=== PATIENT | female | born 1940 | race Caucasian/White ===

== ENCOUNTER 2017-01-16 17:38 | Emergency (ER) | payer MEDICARE ==
[~2017-01-16] VITALS: Ht 149.9 cm; Wt 80.7 kg
[2017-01-16] MEDS: fentaNYL PF VIAL 100 MCG/2 ML VIAL IV PRN ×2 (18:52→20:26)
[2017-01-16 19:18] LABS: BASO % 0 % (0-3); EOS % 2 % (0-3); HEMATOCRIT 30.4 % (36.0-47.0); HEMOGLOBIN 10.1 g/dL (12.0-15.5); LYMPH # 1.2 x10^3/uL (1.0-4.8); LYMPH % 22 % (24-48); MEAN CORPUSCULAR HEMOGLOBIN 33 pg (25-35); MEAN CORPUSCULAR HGB CONC 33 g/dL (31-37); MEAN CORPUSCULAR VOLUME 98 fL (79-100); MONO % 16 % (0-9); NEUT % 61 % (31-73); PLATELET COUNT 209 x10^3/uL (140-400); RED BLOOD COUNT 3.09 x10^6/uL (3.50-5.40); RED CELL DISTRIBUTION WIDTH 15.1 % (11.5-14.5); WHITE BLOOD COUNT 5.6 x10^3/uL (4.0-11.0)
[2017-01-16 19:27] LABS: BILIRUBIN,URINE NEGATIVE (NEG); GLUCOSE,URINE NEGATIVE (NEG); NITRITE,URINE NEGATIVE (NEG); PROTEIN,URINE NEGATIVE (NEG-TRACE); UROBILINOGEN,URINE 0.2 mg/dL (0.2 mg/dL)
[2017-01-16 19:29] LABS: PROTHROMBIN TIME PATIENT 12.6 SEC (11.7-14.0)
[2017-01-16 19:33] LABS: ANION GAP 10 (6-14); BLOOD UREA NITROGEN 22 mg/dL (7-20); BUN/CREATININE RATIO 16 (6-20); CALCIUM 9.7 mg/dL (8.5-10.1); CARBON DIOXIDE 28 mmol/L (21-32); CHLORIDE 101 mmol/L (98-107); CREATININE 1.4 mg/dL (0.6-1.0); GFR 36.4; GLUCOSE 142 mg/dL (70-99); POTASSIUM 3.2 mmol/L (3.5-5.1); SODIUM 139 mmol/L (136-145)
[2017-01-16 19:39] LABS: ALBUMIN 3.7 g/dL (3.4-5.0); ALK PHOS 66 U/L (46-116); AST (SGOT) 15 U/L (15-37); TOTAL BILIRUBIN 0.4 mg/dL (0.2-1.0); TOTAL PROTEIN 7.3 g/dL (6.4-8.2)
[2017-01-16 19:40] LABS: ALT (SGPT) < 6 U/L (14-59)
[2017-01-16 19:46] LABS: BARBITURATES NEG (NEG); BENZODIAZEPINES NEG (NEG); CANNABINOIDS NEG (NEG); COCAINE NEG (NEG); METHADONE NEG (NEG); OPIATES POS (NEG); PHENCYCLIDINE NEG (NEG)
[2017-01-16 19:47] LABS: BACTERIA,URINE 0 /HPF (0-FEW); RBC,URINE 0 /HPF (0-2); SQUAMOUS EPITHELIAL CELL,UR OCC /LPF; WBC,URINE 0 /HPF (0-4)
[2017-01-16 20:30] VITALS: BP 186/86
--- NOTE | 2017-01-16 20:33 | RAD ---
CT head, cervical spine and maxillofacial without contrast 01/16/2017 CLINICAL INDICATION: Fall with left eye and facial swelling and bruising and neck pain. COMPARISON: None. TECHNIQUE: Multiple CT images of the head, maxillofacial and cervical spine were obtained without contrast according to standard protocol. *One or more of the following individualized dose reduction techniques were utilized for this examination: 1. Automated exposure control. 2. Adjustment of the mA and/or kV according to patient size. 3. Use of iterative reconstruction technique. FINDINGS: Head: No acute intracranial hemorrhage or extra-axial fluid collection. Orellana-white matter interfaces are maintained. No midline shift. The basal cisterns are patent. The ventricles and subarachnoid spaces are normal in size and configuration for age. Maxillofacial: There is a nondisplaced fracture of the anterior medial maxillary sinus wall series 6/image 32 which appears to extend to the left nasomaxillary buttress. There are depressed fractures of the left lamina papyracea. There are comminuted fractures of the left medial maxillary sinus wall. Comminuted and displaced fracture of the left orbital floor as seen on series 8/image 16 with inferior displacement of the inferior rectus muscle and orbital fat and adjacent stranding. There is a probable nondisplaced left posterior maxillary sinus wall fracture series 6/image 30. The pterygoid plates, zygomatic arches and mandibles are unremarkable. There is left premaxillary, perinasal and left periorbital soft tissue contusion. There are few foci of soft tissue gas in the left premaxillary soft tissues. There is large layering high density air-fluid level in the left maxillary sinus. There is mild opacification of the left nasal cavity and ethmoid air cells. Cervical spine: No evidence of acute cervical spine fracture or subluxation. There is normal cervical alignment. Atlantoaxial articulation is maintained. There is moderate multilevel cervical spondylosis with disc space narrowing, endplate sclerosis, marginal osteophytes, uncovertebral and facet hypertrophy. Spondylosis results in multilevel moderate to severe neural foraminal narrowing. Examination is not optimized for evaluation of spinal canal narrowing with at least moderate at C6-C7. The visualized lung apices are unremarkable. There are hypodense thyroid nodules, largest on the right measuring 1.5 cm. IMPRESSION: Head: 1. No acute intracranial hemorrhage. Maxillofacial: 1. Complex left maxillofacial fractures including far medial anterior maxillary sinus wall extending to the left nasomaxillary buttress, medial maxillary sinus wall, lamina papyracea, and comminuted left orbital floor fracture. 2. Inferior orbital blowout fracture with displacement of the left inferior rectus musculature and orbital fat with adjacent stranding concerning for orbital entrapment. 3. Probable nondisplaced posterior left maxillary sinus wall fracture. 4. Left maxillary hemosinus. 5. Extensive left periorbital and premaxillary soft tissue contusion with a few foci of soft tissue gas. Cervical spine: 1. No evidence of acute cervical spine fracture or traumatic malalignment. 2. Multilevel cervical spondylosis, as detailed above. These results were discussed with Dr. Mcghee of the emergency service by telephone at 8:25 PM 01/16/[address] Gabriel Thomas. Electronically signed by: Gabriel Thomas MD (01/16/2017 8:29 PM) [facility]
--- NOTE | 2017-01-17 01:37 | ED.ADGEN ---
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 Patient states that she was walking down several stairs, when the door blew open , and she lost her balance and fell, landing on her knees, and striking left side of her face against the pavement. This occurred about an hour prior to her arrival in the emergency department. They states that she takes a baby aspirin daily, Zantac any other anticoagulants. She denies any loss of consciousness, c- collars place upon arrival to the emergency department, patient is noted to have significant swelling of the left side of her face, surrounding the left eye , states that she has her usual blurry vision, denies any chest pain or shortness of breath, any preceding symptoms, any focal weakness, numbness or tingling, nausea vomiting. States her tetanus is up-to-date she last received a year ago. Is complaining of pain in the bilateral knees and left hip. Patient states that she has chronic pain in her left shoulder, where she is previously had a fracture and fixation, states that there is no change in this chronic pain. Review of Systems Review of Systems Constitutional: Denies fever or chills. [] Eyes: Denies change in visual acuity. [] HENT: Denies nasal congestion or sore throat. [] Respiratory: Denies cough or shortness of breath. [] Cardiovascular: Denies chest pain or edema. [] GI: Denies abdominal pain, nausea, vomiting, bloody stools or diarrhea. [] : Denies dysuria. [] Musculoskeletal: Denies back pain, left facial pain, swelling, pain in bilateral knees and left hip. Integument: Denies rash. [] Neurologic: Denies headache, focal weakness or sensory changes. [] Endocrine: Denies polyuria or polydipsia. [] Lymphatic: Denies swollen glands. [] Psychiatric: Denies depression or anxiety. [] Current Medications Current Medications Current Medications Medications (Trade) Dose Ordered Sig/John Start Time Stop Time Status Last Admin Dose Admin Fentanyl Citrate (Fentanyl 2ml Vial) 25 mcg PRN Q15MIN PRN 01/16/17 18:45 01/16/17 23:13 DC 01/16/17 20:26 25 MCG Allergies Allergies Allergies Coded Allergies Type Severity Reaction Last Updated Verified Penicillins Allergy Intermediate 01/16/17 Yes Sulfa (Sulfonamide Antibiotics) Allergy Intermediate 01/16/17 Yes Physical Exam Physical Exam Constitutional: Well developed, well nourished, patient with significant bruising and swelling to the left side of the face and periorbital region. HENT: Normocephalic, atraumatic, bilateral external ears normal hemotympanum, no septal hematoma, patient with significant periorbital swelling, with ecchymosis and hematoma noted, initial examination, patient having significant pain with any eye motion, however on reevaluation of receiving analgesic, patient does have motion appears intact in all directions and both left and right eye, difficult to ascertain any visual acuity, as patient states that she has very blurred vision at baseline, and does not have her glasses with her. Eyes: PERRLA, EOMI, conjunctiva normal, no discharge. [] Neck: Normal range of motion, no tenderness, supple, no stridor. C-collar placed in the ED. After CT imaging did not reveal any evidence of fracture, call was cleared without issue.[] Cardiovascular:Heart rate regular rhythm, no murmur, S1, S2, no rubs or gallops. [] Lungs & Thorax: Diminished breath sounds at bases bilaterally, no wheezing, rhonchi, rales. No chest wall crepitus or tenderness.[] Abdomen: Bowel sounds normal, soft, no rebound, rigidity, no guarding, no tenderness, no masses, no pulsatile masses. [] Skin: Warm, dry, no erythema, no rash. [] Back: Patient with tenderness to palpation throughout the lumbar region, both midline and paraspinal, patient status post previous surgery about surgical incision noted, no step-offs or deformities, no CVA tenderness. [] Extremities: Patient with ecchymosis and abrasions noted bilateral knees, complaining of pain with extension and flexion, although full range of motion is intact, with no cyanosis, no clubbing, ROM intact, no edema. [] Neurologic: Alert and oriented X 3, normal motor function, normal sensory function, no focal deficits noted. [] Psychologic: Affect normal, judgement normal, mood normal. [] Current Patient Data Vital Signs Vital Signs Date Time Temp Pulse Resp B/P (MAP) Pulse Ox O2 Delivery O2 Flow Rate FiO2 01/16/17 20:30 64 21 95 01/16/17 20:26 Room Air 01/16/17 17:40 97.9 173/107 (129) 97.9 Lab Values Laboratory Tests Test 01/16/17 18:50 01/16/17 19:16 White Blood Count 5.6 x10^3/uL (4.0-11.0) Red Blood Count 3.09 x10^6/uL (3.50-5.40) L Hemoglobin 10.1 g/dL (12.0-15.5) L Hematocrit 30.4 % (36.0-47.0) L Mean Corpuscular Volume 98 fL (79-100) Mean Corpuscular Hemoglobin 33 pg (25-35) Mean Corpuscular Hemoglobin Concent 33 g/dL (31-37) Red Cell Distribution Width 15.1 % (11.5-14.5) H Platelet Count 209 x10^3/uL (140-400) Neutrophils (%) (Auto) 61 % (31-73) Lymphocytes (%) (Auto) 22 % (24-48) L Monocytes (%) (Auto) 16 % (0-9) H Eosinophils (%) (Auto) 2 % (0-3) Basophils (%) (Auto) 0 % (0-3) Neutrophils # (Auto) 3.4 x10^3uL (1.8-7.7) Lymphocytes # (Auto) 1.2 x10^3/uL (1.0-4.8) Monocytes # (Auto) 0.9 x10^3/uL (0.0-1.1) Eosinophils # (Auto) 0.1 x10^3/uL (0.0-0.7) Basophils # (Auto) 0.0 x10^3/uL (0.0-0.2) Prothrombin Time 12.6 SEC (11.7-14.0) Prothrombin Time INR 1.0 (0.8-1.1) PTT 24 SEC (24-38) Sodium Level 139 mmol/L (136-145) Potassium Level 3.2 mmol/L (3.5-5.1) L Chloride Level 101 mmol/L (98-107) Carbon Dioxide Level 28 mmol/L (21-32) Anion Gap 10 (6-14) Blood Urea Nitrogen 22 mg/dL (7-20) H Creatinine 1.4 mg/dL (0.6-1.0) H Estimated GFR (Cockcroft-Gault) 36.4 BUN/Creatinine Ratio 16 (6-20) Glucose Level 142 mg/dL (70-99) H Calcium Level 9.7 mg/dL (8.5-10.1) Total Bilirubin 0.4 mg/dL (0.2-1.0) Aspartate Amino Transferase (AST) 15 U/L (15-37) Alanine Aminotransferase (ALT) < 6 U/L (14-59) L Alkaline Phosphatase 66 U/L (46-116) Total Protein 7.3 g/dL (6.4-8.2) Albumin 3.7 g/dL (3.4-5.0) Albumin/Globulin Ratio 1.0 (1.0-1.7) Urine Collection Type U cath Urine Color Yellow Urine Clarity Clear Urine pH 6.0 Urine Specific [place] 1.015 Urine Protein Negative mg/dL (NEG-TRACE) Urine Glucose (UA) Negative mg/dL (NEG) Urine Ketones (Stick) Negative mg/dL (NEG) Urine Blood Negative (NEG) Urine Nitrite Negative (NEG) Urine Bilirubin Negative (NEG) Urine Urobilinogen Dipstick 0.2 mg/dL (0.2 mg/dL) Urine Leukocyte Esterase Negative (NEG) Urine RBC 0 /HPF (0-2) Urine WBC 0 /HPF (0-4) Urine Squamous Epithelial Cells Occ /LPF Urine Transitional Epithelial Cells Occ /LPF Urine Bacteria 0 /HPF (0-FEW) Urine Hyaline Casts Few /HPF Urine Mucus Slight /LPF Urine Opiates Screen Pos (NEG) Urine Methadone Screen Neg (NEG) Urine Barbiturates Neg (NEG) Urine Phencyclidine Screen Neg (NEG) Urine Amphetamine/Methamphetamine Neg (NEG) Urine Benzodiazepines Screen Neg (NEG) Urine Cocaine Screen Neg (NEG) Urine Cannabinoids Screen Neg (NEG) Urine Ethyl Alcohol Neg (NEG) Laboratory Tests 01/16/17 18:50 Laboratory Tests 01/16/17 18:50 EKG EKG EC: Sinus rhythm, heart rate 67 bpm, left axis deviation, QTC of 436, OR of 92, QRS of 90, contour abnormalities in the anterior septal leads, no ST depressions or elevations, abnormal ECG, does not meet STEMI criteria. As interpreted by me. Radiology/Procedures Radiology/Procedures [][facility] [address] [place] [address] IMAGING REPORT Signed PATIENT: BRITT BUSTAMANTE ACCOUNT: [id number] : 1940 LOCATION: ER AGE: 76 SEX: F EXAM STATUS: REG ER ORD. PHYSICIAN: ALEXANDRA MCGHEE DO REASON: fall/injury PROCEDURE: CT CERVICAL SPINE WO CONTRAST CT head, cervical spine and maxillofacial without contrast 01/16/2017 CLINICAL INDICATION: Fall with left eye and facial swelling and bruising and neck pain. COMPARISON: None. TECHNIQUE: Multiple CT images of the head, maxillofacial and cervical spine were obtained without contrast according to standard protocol. *One or more of the following individualized dose reduction techniques were utilized for this examination: 1. Automated exposure control. 2. Adjustment of the mA and/or kV according to patient size. 3. Use of iterative reconstruction technique. FINDINGS: Head: No acute intracranial hemorrhage or extra-axial fluid collection. Orellana-white matter interfaces are maintained. No midline shift. The basal cisterns are patent. The ventricles and subarachnoid spaces are normal in size and configuration for age. Maxillofacial: There is a nondisplaced fracture of the anterior medial maxillary sinus wall series 6/image 32 which appears to extend to the left nasomaxillary buttress. There are depressed fractures of the left lamina papyracea. There are comminuted fractures of the left medial maxillary sinus wall. Comminuted and displaced fracture of the left orbital floor as seen on series 8/image 16 with inferior displacement of the inferior rectus muscle and orbital fat and adjacent stranding. There is a probable nondisplaced left posterior maxillary sinus wall fracture series 6/image 30. The pterygoid plates, zygomatic arches and mandibles are unremarkable. There is left premaxillary, perinasal and left periorbital soft tissue contusion. There are few foci of soft tissue gas in the left premaxillary soft tissues. There is large layering high density air-fluid level in the left maxillary sinus. There is mild opacification of the left nasal cavity and ethmoid air cells. Cervical spine: No evidence of acute cervical spine fracture or subluxation. There is normal cervical alignment. Atlantoaxial articulation is maintained. There is moderate multilevel cervical spondylosis with disc space narrowing, endplate sclerosis, marginal osteophytes, uncovertebral and facet hypertrophy. Spondylosis results in multilevel moderate to severe neural foraminal narrowing. Examination is not optimized for evaluation of spinal canal narrowing with at least moderate at C6-C7. The visualized lung apices are unremarkable. There are hypodense thyroid nodules, largest on the right measuring 1.5 cm. IMPRESSION: Head: 1. No acute intracranial hemorrhage. Maxillofacial: 1. Complex left maxillofacial fractures including far medial anterior maxillary sinus wall extending to the left nasomaxillary buttress, medial maxillary sinus wall, lamina papyracea, and comminuted left orbital floor fracture. 2. Inferior orbital blowout fracture with displacement of the left inferior rectus musculature and orbital fat with adjacent stranding concerning for orbital entrapment. 3. Probable nondisplaced posterior left maxillary sinus wall fracture. 4. Left maxillary hemosinus. 5. Extensive left periorbital and premaxillary soft tissue contusion with a few foci of soft tissue gas. Cervical spine: 1. No evidence of acute cervical spine fracture or traumatic malalignment. 2. Multilevel cervical spondylosis, as detailed above. These results were discussed with Dr. Mcghee of the emergency service by telephone at 8:25 PM 01/16/[address] Francy Thomas. Electronically signed by: Francy Thomas MD (01/16/2017 8:29 PM) [facility] DICTATED and SIGNED BY: FRANCY THOMAS MD DATE: 01/16/172007 CC: ALEXANDRA MCGHEE DO; SELIN SUAREZ ~ Chest x-ray: One view: Patient with top normal cardiac silhouette, with tortuous aorta, patient noted to have chronic fracture of the left humeral head , previous fracture noted also in the right humeral head, patient is hard were in place on the left, no evidence of acute fracture, soft tissue or bony abnormality., effusion or infiltrate. As interpreted by me. Hip x-ray: Two-view with pelvis: Heart murmur noted in the lumbar spine, patient with preservation of the angles of the hip and pelvis, no evidence of acute bony or soft tissue abnormalities. As interpreted by me. Knee x-ray: 4 view: Patient status post complete arthroplasty, no evidence of acute fracture, subluxation, soft tissue or bony abnormality identified. As interpreted by me. Tib-fib x-ray: Two-view: Patient with total knee arthroplasty in place, no evidence of fracture, subluxation, acute soft tissue or bony abnormalities identified. As interpreted by me. Lumbar spine: Three-view: Patient with degenerative changes noted, hardware at L4-L5, no evidence of acute fracture or subluxation or other acute soft tissue or bone abdomen abnormalities identified. As interpreted by me. Course & Med Decision Making Course & Med Decision Making Pertinent Labs and Imaging studies reviewed. (See chart for details) Patient received imaging of the head, next the facial, and cervical spine, due to areas of injury, as well as x-rays of the chest, pelvis, and lower left extremity due to locations of pain. Patient was more comfortably after receiving IV fentanyl in the ED, is now able to range lower extremity without difficulty. Evidence of previous fracture of the patient's left humerus noted on chest x-ray, with chronic changes and chronic fracture noted of the right shoulder as well, although patient is ranging without issue. No evidence of other acute bony abdomen abnormalities noted in the lower extremity. Patient noted to have multiple facial fractures, including an orbital blowout fracture, initially difficulty with eye motion, although on reevaluation after receiving analgesia, patient with preserved range of motion of the left eye, again visual acuities are difficult to determine secondary to patient's blurred vision which is chronic and she states at her baseline. I did discuss findings as above with the transfer line after discussing need for transfer with the patient, who did request that she be transfer to for evaluation and management of her multiple facial fractures with orbital involvement, as we do not have the specialty services available at [facility]. Information was relayed to triage nurse Semaj, images were clouded for review by trauma surgeon Dr. Davis, who did accept the patient for transfer to . Transfer paperwork was completed, patient remains stable, resting comfortably, at time of transfer to EMS for transport to for trauma management. Dragon Disclaimer Dragon Disclaimer This electronic medical record was generated, in whole or in part, using a voice recognition dictation system. Departure Impression: Primary Impression: Fracture of orbital floor, blow-out, closed Additional Impression: Fall (on) (from) other stairs and steps, initial encounter Disposition: 05 TRANSFER OTHER Condition: STABLE Problem Qualifiers ALEXANDRA MCGHEE DO Jan 17, 2017 01:37
--- NOTE | 2017-01-17 06:29 | EKG ---
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
--- NOTE | 2017-01-17 07:44 | RAD ---
Left tibia and fibula, 2 views, 01/16/2017: History: Fall, pain No fracture is identified. There is moderate generalized subcutaneous edema about the lower leg. IMPRESSION: No acute bony abnormality is detected. Left knee with patella, 4 views, 01/16/2017: A total knee prosthesis is in place in satisfactory position. No fracture or dislocation is identified. Moderate soft tissue swelling is present anteriorly. IMPRESSION: 1. A total knee prosthesis is in satisfactory position. 2. No acute bony abnormality is detected.
--- NOTE | 2017-01-17 07:48 | RAD ---
Pelvis with left hip, 3 views, 01/16/2017: History: Fall, pain No fracture or dislocation is identified. The hip joints are well-maintained. There is minimal periarticular calcification along the lateral aspect of left hip joint. IMPRESSION: No acute bony abnormality is detected. Lumbar spine, 3 views, 01/16/2017: There are radiopaque surgical disc spacers present at L4-5. There is a mild spondylolisthesis at that level. There are extensive degenerative changes involving the facet joints in the lower lumbar spine. There is disc space narrowing and moderate marginal spurring throughout the lumbar spine. No acute fracture is identified. IMPRESSION: 1. Moderate multilevel degenerative change. 2. Mild spondylolisthesis at L4-5 with postsurgical change at that disc level. 3. No acute bony abnormality is detected.
--- NOTE | 2017-01-17 07:52 | RAD ---
AP chest, 01/16/2017: History: Fall, pain The heart size and pulmonary vascularity are normal. There is calcific plaquing of the aorta. No pulmonary infiltrates are seen. There is no evidence of pleural fluid or pneumothorax. Postsurgical change is evident at the left shoulder. IMPRESSION: No acute cardiopulmonary abnormality is detected.
== END 2017-01-16 22:37 | disposition short-term general hospital (02) ==
LOC: ER 17:38
DX: S02.32XA Fracture of orbital floor, left side, initial encounter for closed fracture (principal); S00.12XA Contusion of left eyelid and periocular area, initial encounter; G89.29 Other chronic pain; M25.512 Pain in left shoulder; I10 Essential (primary) hypertension; Z90.710 Acquired absence of both cervix and uterus; Z90.49 Acquired absence of other specified parts of digestive tract; Z96.659 Presence of unspecified artificial knee joint; Z88.0 Allergy status to penicillin; Z88.2 Allergy status to sulfonamides; W10.9XXA Fall (on) (from) unspecified stairs and steps, initial encounter; Y93.89 Activity, other specified; Y99.8 Other external cause status; Y92.89 Other specified places as the place of occurrence of the external cause
CPT/HCPCS: 36415; 70450; 70486; 71010; 72100; 72125; 73502; 73564; 73590; 80053; 80307; 81001; 85025; 85610; 85730; 86850; 86900; 86901; 93005; 96374; 96376; 99285; J3010; G0479